=== PATIENT | female | born 2005 | race Caucasian/White ===

== ENCOUNTER 2024-09-22 20:18 | Emergency (ER) | payer BC, SELFPAY ==
[2024-09-22 20:20] VITALS: BP 132/84
--- NOTE | 2024-09-22 20:56 | ED.GENMED ---
History of Present Illness
General
Chief Complaint: Fainting/Passed Out
Source: patient
Exam Limitations: none
Time Seen by Provider: 09/22/24 20:46
History of Present Illness
History of Present Illness:
18-year-old female college student presents with near syncopal episode. She states she was standing in the shower for about 5-minute a lukewarm temperature and developed lightheaded sensation. She developed a pale discoloration. She got out of
the shower and sat down and never passed out. No associated chest pain. She states there is a family history of anemia. Last menstrual cycle was a month ago she is due for next week. She denies chest pain or abdominal pain. No fever. No other
complaints. No recent travel.
Past History
Past History
ED Past Medical History: Asthma
ED Past Surgical History: Tonsilectomy
Social History
Tobacco: Non-smoker
Alcohol: None
Personal: Single
Living: with roommate
Employment: Student
Family History
Family History: Other (Noncontributory)
Phy Exam
Physical Exam
Physical Exam:
General: Well-appearing female no acute respiratory distress
HEENT: Normocephalic atraumatic
Heart: Regular rate and rhythm
Lungs: Clear no wheeze
Extremities: No cyanosis
Course
Orders/Labs/Results
Orders:
Orders
09/22/24 20:21
EKG [Electrocardiogram (*1)] Urgent
Reason for Study: Syncope
EKG- Treatment ONCE
09/22/24 21:07
Complete Blood Count/With Diff Urgent
Comprehensive Metabolic Panel Urgent
09/22/24 21:33
0.9% Sodium Chloride 1000 ml [Nss] 1,000 ml IV BOLUS
Abnormal Lab Results
09/22/24
21:07
WBC 13.7 H 10^3/uL
(4.8-10.8)
Hct 36.5 L %
(37.0-47.0)
Absolute Neuts (auto) 8.6 H 10^3/uL
(1.4-6.5)
Absolute Lymphs (auto) 3.6 H 10^3/uL
(1.2-3.4)
Absolute Monos (auto) 1.1 H 10^3/uL
(0.1-0.6)
Chloride 108 H mmol/L
(98-107)
09/22/24 21:07
09/22/24 21:07
Vital Signs
Initial and Last Documented VS:
Initial Vital Signs
Temp Pulse Resp BP Pulse Ox
98.2 F 86 17 132/84 100
09/22/24 20:20 09/22/24 20:20 09/22/24 20:20 09/22/24 20:20 09/22/24 20:20
Last Documented Vital Signs
Temp Pulse Resp BP Pulse Ox
98.2 F 69 14 123/47 100
09/22/24 20:20 09/22/24 22:00 09/22/24 22:00 09/22/24 22:00 09/22/24 22:00
MDM/Problems Addressed
Differential Diagnosis Includes:
Near syncope. Question vasovagal response versus arrhythmia versus electrolyte abnormality versus anemia
EKG through triage shows sinus rhythm with sinus arrhythmia no ischemic changes. Patient placed on monitor will check basic labs and hydrate
*Critical Care Note
Total Time (30-74mins, 75-104mins- exclusive of procedures): Not Applicable
Update Note
Update Note:
Patient reevaluated she was hydrated labs reviewed without significant finding. I suspect likely vasovagal episode. Recommend follow-up with family doctor
ED Attending Note
-
Portions of this chart may have been created with voice recognition software.� Occasional wrong word or��sound alike� substitutions may have occurred due to the inherent limitations of voice recognition software.
Discharge Plan
Departure
Patient Disposition: Home (Routine Discharge)
Date of Disposition: 09/22/24
Time of Disposition: 23:03
Patient with high blood pressure during this ER visit?: No
Discharge Problem:
Pre-syncope
Instructions: Vasovagal Response
Prescriptions:
No Action
omeprazole 20 mg Tablet,Delayed Release (Dr/Ec)
20 mg PO DAILY PRN (Reason: acid reflux)
Referrals:
Mayra Mcgrath DO [Family Provider] -
Activity Restrictions/Additional Instructions:
Stay hydrated. Turn if worse otherwise follow-up with your doctor
Interventions
Interventions:
*Risk Screen - Suicide Last Done: 09/22/24 20:21
*General Assessment Last Done: 09/22/24 20:21
*Neglect/Abuse Screening Last Done: 09/22/24 20:21
*ED- Fall Risk Assessment Last Done: 09/22/24 20:31
*ED COVID-19 Vaccine History Last Done: 09/22/24 20:21
ED- Cardiac Assessment Last Done: 09/22/24 21:15
ED- Neurological Assessment Last Done: 09/22/24 21:15
Discharge Date and Time
Print Language: EMIRATI
[2024-09-22 21:01] VITALS: BMI 40.7
[2024-09-22 21:10] VITALS: BP 134/85
[2024-09-22 21:13] LABS: % Basophils 0.5 % (0-2); % Eosinophils 1.5 % (0-6); % Immature Granulocytes 0.2 % (0-0.5); % Lymphocytes 26.5 % (20.5-51.1); % Monocytes 8.2 % (1.7-9.3); % Neutrophils 63.1 % (42.2-75.2); Absolute Basophils 0.1 10^3/uL (0-0.2); Absolute Eosinophils 0.2 10^3/uL (0-0.7); Absolute Lymphocytes 3.6 10^3/uL (1.2-3.4); Absolute Monocytes 1.1 10^3/uL (0.1-0.6); Absolute Neutrophils 8.6 10^3/uL (1.4-6.5); Hematocrit 36.5 % (37.0-47.0); Hemoglobin 12.5 g/dL (12.0-16.0); Mean Corp Hgb Conc. 34.2 g/dL (33.0-37.0); Mean Corpuscular Hgb 28.5 pg (27.0-31.0); Mean Corpuscular Volume 83.1 fL (81.0-99.0); Mean Platelet Volume 10.4 fL (7.4-10.4); Nucleated Red Blood Cells % 0 %; Platelet Count 302 10^3/uL (130-400); Red Blood Cell Count 4.39 10^6/uL (4.20-5.40); Red Cell Dist. Width 13.8 % (11.5-14.5); White Blood Cell Count 13.7 10^3/uL (4.8-10.8)
[2024-09-22 21:29] LABS: ALT (SGPT) 15 U/L (0-35); AST (SGOT) 23 U/L (14-36); Alkaline Phosphatase 53 U/L (38-126); Calcium 9.8 mg/dl (8.4-10.2); Carbon Dioxide 22 mmol/L (22-30); Chloride 108 mmol/L (98-107); Estimated Creatinine Clearance > 125 ml/min; Glucose 93 mg/dl (70-99); Potassium 3.9 mmol/L (3.5-5.1); Sodium 138 mmol/L (135-145); eGFR > 60.00
[2024-09-22] MEDS: NSS 1000 IV (21:52)
[2024-09-22 22:00] VITALS: BP 123/47
[2024-09-22 22:01] LABS: Blood Urea Nitrogen 10 mg/dl (7-17); Total Bilirubin 0.6 mg/dl (0.2-1.3)
[2024-09-22 23:00] VITALS: BP 97/78
== END 2024-09-22 23:38 | disposition home or self-care (01) ==
LOC: EMR 20:18
PROVIDERS: Physician Assistant; EMERGENCY PHYSICIAN Student in an Organized Health Care Education/Training Program; FAMILY PHYSICIAN Internal Medicine
DX: R55 Syncope and collapse (principal); J45.909 Unspecified asthma, uncomplicated; Z88.1 Allergy status to other antibiotic agents
CPT/HCPCS: 99284; 96360; 80053; 85025; 93005